=== PATIENT | female | born 1990 | race African-American/Black ===

== ENCOUNTER 2021-03-13 21:42 | Emergency (ER) | payer OTHER ==
[~2021-03-13] VITALS: Ht 152.4 cm; Wt 73.0 kg
[2021-03-13 22:06] VITALS: BP 119/59
[2021-03-13] MEDS ORDERED: PSEU60TA95 MT (23:39)
[2021-03-13] MEDS ORDERED: FLUT16SP15 BOTHNSTRLS (23:39)
[2021-03-13] MEDS ORDERED: NAPR500T7 MT (23:40)
[2021-03-13] MEDS ORDERED: HYDROCODONE/ACETAMINOPHEN 5/325MG TABLET PO ONE (23:45)
== END 2021-03-14 00:06 | disposition home or self-care (01) ==
LOC: ER 21:42
DX: H92.02 Otalgia, left ear (principal); Z98.890 Other specified postprocedural states
CPT/HCPCS: 81025; 99283